=== PATIENT | female | born 1990 | race Caucasian/White ===

== ENCOUNTER → 2020-11-06 | Outpatient (CLI) | payer OTHER ==
[~2020-11-06] MED LIST: CLARITIN10 MG PO; PRENATAL VITAM1 EAC3 PO
== END ==
LOC: US 09:21
DX: R10.9 Unspecified abdominal pain (principal)
CPT/HCPCS: 76700

== ENCOUNTER 2021-02-04 17:49 | Emergency (ER) | payer OTHER ==
[2021-02-04 20:08] LABS: HEMOGLOBIN 15.9 gm/dl (12.3-15.3); RED BLOOD COUNT 5.05 M/UL (4.00-5.10); WHITE BLOOD COUNT 9.4 K/UL (4.5-11.0)
[2021-02-04 20:26] LABS: BUN/CREATININE RATIO 32 (0-10)
== END 2021-02-05 00:16 | disposition home or self-care (01) ==
LOC: ER1 17:49
PROVIDERS: Family Medicine
DX: R10.11 Right upper quadrant pain (principal)
CPT/HCPCS: 80053; 81001; 83690; 84703; 85025; 99284; Q9967

== ENCOUNTER → 2021-03-28 | Outpatient (CLI) | payer OTHER | LOC: NM 12:55 | DX: R10.9 Unspecified abdominal pain (principal) | CPT/HCPCS: 78226; A9537 ==

== ENCOUNTER 2022-05-09 18:52 | Emergency (ER) | payer OTHER ==
[2022-05-09 19:22] LABS: HEMOGLOBIN 13.2 gm/dl (12.3-15.3); RED BLOOD COUNT 4.25 M/UL (4.00-5.10); WHITE BLOOD COUNT 6.1 K/UL (4.5-11.0)
[2022-05-09 19:51] LABS: BUN/CREATININE RATIO 24 (0-10)
== END 2022-05-09 20:15 | disposition home or self-care (01) ==
LOC: ER1 18:52
PROVIDERS: Nurse Practitioner
DX: R07.89 Other chest pain (principal)
CPT/HCPCS: 71045; 80053; 82550; 82553; 84484; 85025; 93005; 99285